=== PATIENT | female | born 1990 ===

== ENCOUNTER 2020-10-21 20:44 | Emergency (ER) | payer MEDICAID, OTHER ==
[~2020-10-21] VITALS: Ht 167.6 cm; Wt 63.5 kg
[2020-10-21 23:19] VITALS: BP 139/87
== END 2020-10-22 01:22 | disposition home or self-care (01) ==
LOC: ER 20:44
DX: S52.601A Unspecified fracture of lower end of right ulna, initial encounter for closed fracture (principal); W01.198A Fall on same level from slipping, tripping and stumbling with subsequent striking against other object, initial encounter; Y93.89 Activity, other specified; Y92.89 Other specified places as the place of occurrence of the external cause; Y99.8 Other external cause status
CPT/HCPCS: 29105; 73090